=== PATIENT | male | born 1985 | race Caucasian/White ===

== ENCOUNTER 2020-12-28 19:10 | Inpatient (IN) | payer OTHER, SELFPAY ==
[2020-12-28 19:14] VITALS: BMI 18.4
[2020-12-28] MEDS ORDERED: Ondansetron ODT 4 MG TAB PO PRN (20:28)
[2020-12-28] MEDS ORDERED: Ondansetron PF 4 MG/2 ML Vial IVP PRN (20:28)
[2020-12-28] MEDS ORDERED: Acetaminophen 650 MG Suppository PR PRN (20:28)
[2020-12-28] MEDS ORDERED: Acetaminophen 325 MG TAB PO PRN (20:28)
[2020-12-28] MEDS ORDERED: Calcium Carbonate 500 MG ChewTAB PO PRN (20:28)
[2020-12-28] MEDS ORDERED: Lorazepam 2 MG/ML VIAL SLOW IVP PRN ×2 (20:33)
[2020-12-28] MEDS ORDERED: Multivitamins, Adult 10 ML, Folic Acid 1 MG, Thiamine HCl 100 MG in Dextrose 5 %-0.45 %... IV SCH (21:00)
[2020-12-28] MEDS ORDERED: Famotidine/PF 20 mg/2ml Vial SLOW IVP SCH (21:00)
[2020-12-28] MEDS ORDERED: Famotidine 20 MG TAB PO SCH (21:00)
[2020-12-28] MEDS ORDERED: Thiamine HCl 200 MG/2 ML VIAL IM SCH (21:00)
[2020-12-28 21:03] LABS: #Basophils 0.1 thou/uL (0.0-0.2); #Eosinphils 0.1 thou/uL (0.0-0.7); #Lymphocytes 2.1 thou/uL (1.20-3.40); #Monocytes 0.8 thou/uL (0.11-0.59); #Neutrophils 5.8 thou/uL (1.40-6.50); %Basophils 1.1 % (0.0-1.0); %Eosinophils 0.9 % (0.0-10.0); %Lymphocytes 23.9 % (21.0-51.0); %Monocytes 8.5 % (0.0-10.0); %Neutrophils 65.6 % (42.0-75.0); Hemoglobin 14.7 g/dL (14.0-18.0); Mean Corpuscular HGB CONC 35.3 g/dL (32.0-36.0); Mean Corpuscular Hemoglobin 31.8 pg (27.0-31.0); Mean Corpuscular Volume 90.1 fL (78.0-98.0); Mean Platelet Volume 8.7 fL (7.4-10.4); Platelet Count 173 thou/uL (130-400); RBC Distribution Width 12.2 % (11.5-14.5); Red Blood Cell (RBC) Count 4.64 mill/uL (4.70-6.10); White Blood Cell (WBC) Count 8.8 thou/uL (4.8-10.8)
[2020-12-28 21:25] LABS: Anion Gap 11 mmol/L (10-20); BUN (Urea Nitrogen) 16 mg/dL (8.9-20.6); Calc. Creatinine Clearance 95 mL/min (70-130); Calcium 8.7 mg/dL (7.8-10.44); Carbon Dioxide 28 mmol/L (22-29); Chloride 101 mmol/L (98-107); Glucose 94 mg/dL (70-105); Magnesium 2.2 mg/dL (1.6-2.6); Phosphorus 3.2 mg/dL (2.3-4.7); Potassium 3.8 mmol/L (3.5-5.1); Sodium 136 mmol/L (136-145)
[2020-12-28] MEDS: Metoprolol Tartrate 25 MG TAB PO SCH (21:31)
[2020-12-28] MEDS: Nicotine 14 MG PATCH TD SCH (21:31)
[2020-12-28] MEDS: chlordiazePOXIDE HCl 25 MG CAP PO SCH (21:32)
[2020-12-28] MEDS: D5 1/2 NS w/10 mEq KCl 1,000 ML/1,000 ML BAG IV SCH (22:34)
[2020-12-28] MEDS: Melatonin 3 MG TAB PO SCH (22:41)
[2020-12-28 23:15] LABS: Bacteria/HPF None Seen HPF (None Seen); Bilirubin Negative (Negative); Blood, Urine Negative (Negative); Clarity Turbid (Clear); Glucose, Urine (Dipstick) Normal (Negative); Ketone, Urine Negative (Negative); Leukocyte Negative Leu/uL (Negative); Nitrite Negative (Negative); Protein, Urine (Dipstick) Negative (Neg-Trace); RBC/HPF None Seen HPF (0-3); Specific Gravity, Urine 1.017 (1.002-1.036); Squamous Epithelial None Seen HPF (0-3); Urobilinogen Normal mg/dL (Less than 2); pH, Urine 7.5 (5.0-9.0)
[2020-12-28 23:28] LABS: WBC/HPF 0-3 HPF (0-3)
[2020-12-29 04:28] LABS: #Basophils 0.1 thou/uL (0.0-0.2); #Eosinphils 0.1 thou/uL (0.0-0.7); #Lymphocytes 1.9 thou/uL (1.20-3.40); #Monocytes 0.6 thou/uL (0.11-0.59); #Neutrophils 4.8 thou/uL (1.40-6.50); %Basophils 1.3 % (0.0-1.0); %Eosinophils 1.8 % (0.0-10.0); %Lymphocytes 25.4 % (21.0-51.0); %Monocytes 7.7 % (0.0-10.0); %Neutrophils 63.8 % (42.0-75.0); Hemoglobin 14.6 g/dL (14.0-18.0); Mean Corpuscular HGB CONC 33.3 g/dL (32.0-36.0); Mean Corpuscular Hemoglobin 30.6 pg (27.0-31.0); Mean Corpuscular Volume 91.8 fL (78.0-98.0); Mean Platelet Volume 9.2 fL (7.4-10.4); Platelet Count 166 thou/uL (130-400); RBC Distribution Width 12.5 % (11.5-14.5); Red Blood Cell (RBC) Count 4.77 mill/uL (4.70-6.10); White Blood Cell (WBC) Count 7.6 thou/uL (4.8-10.8)
[2020-12-29 04:42] LABS: ALT (SGPT) 34 U/L (8-55); AST (SGOT) 32 U/L (5-34); Albumin 4.1 g/dL (3.5-5.0); Alkaline Phosphatase 73 U/L (40-110); Anion Gap 8 mmol/L (10-20); BUN (Urea Nitrogen) 13 mg/dL (8.9-20.6); Bilirubin, Total 1.2 mg/dL (0.2-1.2); Calc. Creatinine Clearance 101 mL/min (70-130); Calcium 8.7 mg/dL (7.8-10.44); Carbon Dioxide 29 mmol/L (22-29); Chloride 104 mmol/L (98-107); Globulin 2.6 g/dL (2.4-3.5); Glucose 98 mg/dL (70-105); Potassium 3.9 mmol/L (3.5-5.1); Protein, Total 6.7 g/dL (6.0-8.3); Sodium 137 mmol/L (136-145)
[2020-12-29] MEDS: D5 1/2 NS w/10 mEq KCl 1,000 ML/1,000 ML BAG IV SCH ×3 (04:56→19:15)
[2020-12-29] MEDS: Melatonin 3 MG TAB PO SCH (04:56)
[2020-12-29] MEDS: Thiamine 100 MG TAB PO SCH (09:17)
[2020-12-29] MEDS: Multivitamin W/ Minerals 1 TAB PO SCH (09:17)
[2020-12-29] MEDS: Metoprolol Tartrate 25 MG TAB PO SCH ×2 (09:18→20:46)
[2020-12-29] MEDS: Magnesium Oxide 400 MG TAB PO SCH (09:18)
[2020-12-29] MEDS: chlordiazePOXIDE HCl 25 MG CAP PO SCH ×3 (09:18→20:46)
[2020-12-29] MEDS: Folic Acid 1 MG TAB PO SCH (09:18)
[2020-12-29] MEDS: Nicotine 14 MG PATCH TD SCH (20:45)
[2020-12-30] MEDS: D5 1/2 NS w/10 mEq KCl 1,000 ML/1,000 ML BAG IV SCH ×2 (03:06→14:25)
[2020-12-30 04:51] LABS: #Basophils 0.1 thou/uL (0.0-0.2); #Eosinphils 0.4 thou/uL (0.0-0.7); #Lymphocytes 1.9 thou/uL (1.20-3.40); #Monocytes 0.5 thou/uL (0.11-0.59); #Neutrophils 6.6 thou/uL (1.40-6.50); %Eosinophils 3.8 % (0.0-10.0); %Lymphocytes 20.1 % (21.0-51.0); %Neutrophils 70.1 % (42.0-75.0); Hemoglobin 15.8 g/dL (14.0-18.0); Mean Corpuscular HGB CONC 33.4 g/dL (32.0-36.0); Mean Corpuscular Volume 92.8 fL (78.0-98.0); Mean Platelet Volume 9.8 fL (7.4-10.4); Platelet Count 149 thou/uL (130-400); RBC Distribution Width 12.6 % (11.5-14.5); Red Blood Cell (RBC) Count 5.11 mill/uL (4.70-6.10); White Blood Cell (WBC) Count 9.5 thou/uL (4.8-10.8)
[2020-12-30 05:43] LABS: ALT (SGPT) 33 U/L (8-55); AST (SGOT) 33 U/L (5-34); Albumin 4.2 g/dL (3.5-5.0); Alkaline Phosphatase 73 U/L (40-110); Anion Gap 12 mmol/L (10-20); BUN (Urea Nitrogen) 15 mg/dL (8.9-20.6); Bilirubin, Total 0.5 mg/dL (0.2-1.2); Calc. Creatinine Clearance 90 mL/min (70-130); Calcium 9.4 mg/dL (7.8-10.44); Carbon Dioxide 26 mmol/L (22-29); Chloride 104 mmol/L (98-107); Globulin 3.2 g/dL (2.4-3.5); Glucose 96 mg/dL (70-105); Magnesium 2.3 mg/dL (1.6-2.6); Potassium 4.3 mmol/L (3.5-5.1); Protein, Total 7.4 g/dL (6.0-8.3); Sodium 138 mmol/L (136-145)
[2020-12-30] MEDS: Multivitamin W/ Minerals 1 TAB PO SCH (08:31)
[2020-12-30] MEDS: Metoprolol Tartrate 25 MG TAB PO SCH (08:31)
[2020-12-30] MEDS: Magnesium Oxide 400 MG TAB PO SCH (08:31)
[2020-12-30] MEDS: Thiamine 100 MG TAB PO SCH (08:31)
[2020-12-30] MEDS: Folic Acid 1 MG TAB PO SCH (08:31)
[2020-12-30] MEDS: chlordiazePOXIDE HCl 25 MG CAP PO SCH (09:32)
[2020-12-30 11:20] VITALS: TEMP 98.2
[2020-12-30 12:17] VITALS: BP 120/87
[2020-12-30] MEDS ORDERED: buPROPion 75 MG TAB PO SCH (21:00)
[2020-12-30] MEDS ORDERED: chlordiazePOXIDE HCl 25 MG CAP PO SCH (21:00)
== END 2020-12-30 15:40 | disposition home or self-care (01) | DRG 897 ==
LOC: 2NO 19:10
PROVIDERS: ADMIT Family Medicine; ATTEND Internal Medicine
DX: F10.239 Alcohol dependence with withdrawal, unspecified (principal); E44.1 Mild protein-calorie malnutrition; Z68.1 Body mass index [BMI] 19.9 or less, adult; F32.9 Major depressive disorder, single episode, unspecified; I10 Essential (primary) hypertension; F17.210 Nicotine dependence, cigarettes, uncomplicated; Z79.899 Other long term (current) drug therapy; Z71.6 Tobacco abuse counseling
CPT/HCPCS: 36415; 80053; 81001; 83735; 84100; 84443; 85025; J3411; J3475; J3480; J3490; J7042; Q0162

== ENCOUNTER 2021-01-12 20:26 | Emergency (ER) | payer OTHER | END 2021-01-13 01:25 | disposition home or self-care (01) | LOC: ERS 20:26 | DX: F10.129 Alcohol abuse with intoxication, unspecified (principal); I10 Essential (primary) hypertension; F17.210 Nicotine dependence, cigarettes, uncomplicated | CPT/HCPCS: 93005 ==

== ENCOUNTER 2021-01-22 | Inpatient (IN) | payer OTHER, SELFPAY | END 2021-01-23 18:46 | disposition home or self-care (01) | DRG 897 | PROVIDERS: ADMIT Internal Medicine | PROC: HZ2ZZZZ Detoxification Services for Substance Abuse Treatment (ICD-10-PCS; principal; 2021-01-20) ==

== ENCOUNTER 2022-08-26 20:49 | Emergency (ER) | payer OTHER, SELFPAY ==
[2022-08-26 22:31] LABS: #Basophils 0.1 thou/uL (0.0-0.2); #Lymphocytes 1.6 thou/uL (1.20-3.40); #Monocytes 0.8 thou/uL (0.11-0.59); %Basophils 0.6 % (0.0-1.0); %Eosinophils 0.1 % (0.0-10.0); %Lymphocytes 17.3 % (21.0-51.0); %Monocytes 8.2 % (0.0-10.0); %Neutrophils 73.7 % (42.0-75.0); Hemoglobin 16.2 g/dL (14.0-18.0); Mean Corpuscular HGB CONC 33.4 g/dL (32.0-36.0); Mean Corpuscular Hemoglobin 29.4 pg (27.0-31.0); Mean Corpuscular Volume 88.2 fl (78.0-98.0); Mean Platelet Volume 8.4 fL (7.4-10.4); Platelet Count 198 10x3/uL (130-400); RBC Distribution Width 12.8 % (11.5-14.5); White Blood Cell (WBC) Count 9.4 10x3/uL (4.8-10.8)
[2022-08-26 22:49] LABS: ALT (SGPT) 26 U/L (8-55); AST (SGOT) 47 U/L (5-34); Albumin 4.4 g/dL (3.5-5.0); Alcohol 241 mg/dL (Less than 10); Alkaline Phosphatase 84 U/L (40-110); Anion Gap 15 mmol/L (10-20); BUN (Urea Nitrogen) 16 mg/dL (8.9-20.6); Bilirubin, Total 0.5 mg/dL (0.2-1.2); CK (CPK) 336 U/L (30-200); Calc. Creatinine Clearance 0 mL/min (70-130); Calcium 8.9 mg/dL (7.8-10.44); Carbon Dioxide 30 mmol/L (22-29); Chloride 97 mmol/L (98-107); Estimated GFR 116; Globulin 2.9 g/dL (2.4-3.5); Glucose 109 mg/dL (70-105); Lipase 85 U/L (8-78); Magnesium 2.1 mg/dL (1.6-2.6); Potassium 4.3 mmol/L (3.5-5.1); Protein, Total 7.3 g/dL (6.0-8.3); Sodium 138 mmol/L (136-145)
== END 2022-08-27 01:03 | disposition home or self-care (01) ==
LOC: ERS 20:49
DX: F10.129 Alcohol abuse with intoxication, unspecified (principal); F41.9 Anxiety disorder, unspecified; F17.210 Nicotine dependence, cigarettes, uncomplicated
CPT/HCPCS: 36415; 80053; 80307; 82550; 83690; 83735; 85025; 96360; 96361

== ENCOUNTER 2024-06-30 19:28 | Inpatient (IN) | payer OTHER, SELFPAY ==
[2024-06-30] MEDS ORDERED: Lorazepam 2 MG/ML VIAL ONE (20:31)
[2024-06-30] MEDS ORDERED: chlordiazePOXIDE HCl 25 MG CAP ONE (20:31)
[2024-06-30] MEDS ORDERED: Lorazepam 2 MG/ML VIAL IM PRN (20:54)
[2024-06-30] MEDS ORDERED: Electrolyte Replacement Protocol 1 EACH FS PRN (21:00)
[2024-06-30] MEDS ORDERED: Acetaminophen 650 MG Suppository PR PRN (21:52)
[2024-06-30] MEDS: Ondansetron ODT 4 MG TAB PO PRN (22:39)
[2024-06-30] MEDS: Thiamine HCl 200 MG/2 ML VIAL SLOW IVP SCH (22:40)
[2024-06-30] MEDS: Lorazepam 1 MG TAB PO SCH (22:50)
[2024-06-30] MEDS: Multivit, Therapeutic 1 TAB PO SCH (22:51)
[2024-06-30] MEDS: Dexmedetomidine In 0.9 % NaCl 100 ML IVPB SCH (22:54)
[2024-06-30 23:46] LABS: Alcohol 82.7 mg/dL (Less than 10)
[2024-06-30 23:47] LABS: Anion Gap 16 mmol/L (10-20); BUN (Urea Nitrogen) 11 mg/dL (8.9-20.6); Calc. Creatinine Clearance 0 mL/min (70-130); Calcium 8.3 mg/dL (7.8-10.44); Carbon Dioxide 23 mmol/L (22-29); Chloride 100 mmol/L (98-107); Estimated GFR 128; Glucose 100 mg/dL (70-105); Potassium 3.4 mmol/L (3.5-5.1); Sodium 136 mmol/L (136-145)
[2024-06-30 23:58] VITALS: BMI 19.8
[2024-06-30] MEDS ORDERED: Lorazepam 1 MG TAB PO SCH (23:59)
[2024-07-01] MEDS: Potassium Chloride 20 MEQ TAB PO SCH (00:30)
[2024-07-01] MEDS: Lorazepam 2 MG/ML VIAL SLOW IVP PRN (00:30)
[2024-07-01 04:30] LABS: #Basophils 0.06 10x3/uL (0.0-0.2); %Basophils 1.1 % (0.0-1.0); %Eosinophils 1.3 % (0.0-10.0); %Lymphocytes 24.4 % (21.0-51.0); %Monocytes 7.7 % (0.0-10.0); %Neutrophils 65.3 % (42.0-75.0); Hematocrit 38.5 % (42.0-52.0); Hemoglobin 13.2 g/dL (14.0-18.0); Mean Corpuscular HGB CONC 34.3 g/dL (32.0-36.0); Mean Corpuscular Hemoglobin 29.2 pg (27.0-31.0); Mean Corpuscular Volume 85.2 fL (78.0-98.0); Mean Platelet Volume 10.3 fL (7.4-10.4); Platelet Count 152 10x3/uL (130-400); RBC Distribution Width 13.5 % (11.5-14.5); Red Blood Cell (RBC) Count 4.52 mill/uL (4.70-6.10)
[2024-07-01 04:53] LABS: ALT (SGPT) 63 U/L (Less than 45); AST (SGOT) 94 U/L (11-34); Albumin 3.5 g/dL (3.1-4.5); Alkaline Phosphatase 61 U/L (40-110); Anion Gap 13 mmol/L (10-20); BUN (Urea Nitrogen) 10 mg/dL (8.9-20.6); Bilirubin, Total 0.8 mg/dL (0.3-1.2); Calc. Creatinine Clearance 149 mL/min (70-130); Calcium 8.5 mg/dL (7.8-10.44); Carbon Dioxide 28 mmol/L (22-29); Chloride 100 mmol/L (98-107); Estimated GFR 128; Globulin 2.6 g/dL (2.4-3.5); Glucose 106 mg/dL (70-105); Potassium 3.8 mmol/L (3.5-5.1); Protein, Total 6.1 g/dL (6.0-8.3); Sodium 137 mmol/L (136-145)
[2024-07-01] MEDS: Folic Acid 1 MG TAB PO SCH (08:14)
[2024-07-01] MEDS: Multivit, Therapeutic 1 TAB PO SCH (08:14)
[2024-07-01] MEDS: Lorazepam 1 MG TAB PO PRN (09:16)
[2024-07-01] MEDS: Amlodipine 5 MG TAB PO SCH (10:04)
[2024-07-02] MEDS: Amlodipine 5 MG TAB PO SCH (08:11)
[2024-07-02] MEDS: Sertraline 100 MG TAB PO SCH (08:11)
[2024-07-02] MEDS: Calcium Carbonate 500 MG ChewTAB PO PRN (08:11)
[2024-07-02] MEDS: Lorazepam 1 MG TAB PO PRN ×2 (09:14→21:02)
[2024-07-02 09:23] LABS: Anion Gap 14 mmol/L (10-20); BUN (Urea Nitrogen) 9 mg/dL (8.9-20.6); Calc. Creatinine Clearance 129 mL/min (70-130); Calcium 9.4 mg/dL (7.8-10.44); Carbon Dioxide 27 mmol/L (22-29); Chloride 98 mmol/L (98-107); Estimated GFR 126; Glucose 137 mg/dL (70-105); Potassium 3.7 mmol/L (3.5-5.1); Sodium 135 mmol/L (136-145)
[2024-07-02] MEDS ORDERED: Lorazepam 0.5 MG TAB PO SCH (23:59)
[2024-07-03 05:05] LABS: Phosphorus 3.5 mg/dL (2.5-4.5)
[2024-07-03 05:07] LABS: Anion Gap 14 mmol/L (10-20); BUN (Urea Nitrogen) 7 mg/dL (8.9-20.6); Calc. Creatinine Clearance 107 mL/min (70-130); Calcium 9.2 mg/dL (7.8-10.44); Carbon Dioxide 27 mmol/L (22-29); Chloride 97 mmol/L (98-107); Estimated GFR 119; Glucose 108 mg/dL (70-105); Magnesium 1.9 mg/dL (1.6-2.6); Potassium 3.5 mmol/L (3.5-5.1); Sodium 134 mmol/L (136-145)
[2024-07-03] MEDS: Lorazepam 0.5 MG TAB PO SCH (05:53)
[2024-07-03] MEDS: Lorazepam 2 MG/ML VIAL SLOW IVP PRN (08:02)
[2024-07-03] MEDS: Potassium Chloride 20 MEQ TAB PO SCH (09:25)
[2024-07-03] MEDS: Magnesium 2 GM/50 ML(in water) 2 GM in Premix 1 BAG IVPB SCH (09:26)
[2024-07-03] MEDS: Acetaminophen 325 MG TAB PO PRN (12:11)
[2024-07-03] MEDS: hydrOXYzine 25 MG TAB PO SCH (20:37)
[2024-07-03] MEDS: Thiamine 100 MG TAB PO SCH (20:37)
[2024-07-03] MEDS: traZODone HCl 50 MG TAB PO PRN (20:42)
[2024-07-03] MEDS ORDERED: Lorazepam 0.5 MG TAB PO PRN (20:54)
[2024-07-04] MEDS: Sertraline 25 MG TAB PO SCH (09:10)
[2024-07-04] MEDS: cloNIDine 0.1mg/24 Hour PATCH TD SCH (09:17)
[2024-07-04] MEDS: Propranolol HCl 20 MG TAB PO SCH (15:17)
[2024-07-05 08:05] VITALS: BP 135/90; TEMP 97.6
== END 2024-07-05 11:59 | disposition home or self-care (01) | DRG 897 ==
LOC: ERS 19:28 → IMCU/EMU 21:22 → T4-B 07-03 10:55
PROVIDERS: ADMIT Student in an Organized Health Care Education/Training Program; ATTEND Family Medicine
PROC: HZ2ZZZZ Detoxification Services for Substance Abuse Treatment (ICD-10-PCS; principal; 2024-06-30)
DX: F10.239 Alcohol dependence with withdrawal, unspecified (principal); E87.1 Hypo-osmolality and hyponatremia; I10 Essential (primary) hypertension; F41.9 Anxiety disorder, unspecified; E87.6 Hypokalemia
CPT/HCPCS: 36415; 80048; 80053; 80307; 83735; 84100; 85025; 93005; 96374; J2060; J3411; J3475; Q0162